=== PATIENT | male | born 1995 | race American Indian/Alaskan Native ===

== ENCOUNTER 2016-07-01 12:22 | Outpatient (CLI) | payer MEDICARE | END 2016-07-01 12:23 | disposition home or self-care (01) | LOC: LAB 12:22 | DX: N18.1 Chronic kidney disease, stage 1 (principal); E55.9 Vitamin D deficiency, unspecified; D50.9 Iron deficiency anemia, unspecified | CPT/HCPCS: 36415; 84132 ==